=== PATIENT | female | born 1990 | race African-American/Black ===

== ENCOUNTER 2019-04-18 18:37 | Emergency (ER) | payer BC, OTHER ==
[2019-04-18 19:07] VITALS: BP 112/65; PULSE 78; TEMP 98.4; BMI 19.7
--- NOTE | 2019-04-18 21:15 | PDOC ---
Documentation entered by Leyda Hall SCRIBE, acting as scribe for Kathya Sepulveda MD. Kathya Sepulveda MD: This documentation has been prepared by the Rafael andrew Maria, SCRIBE, under my direction and personally reviewed by me in its entirety. I confirm that the documentation accurately reflects all work, treatment, procedures, and medical decision making performed by me. History of Present Illness - General Chief Complaint: Itching Stated Complaint: ITCHING Time Seen by Provider: 04/18/19 19:12 History Source: Patient Exam Limitations: No Limitations - History of Present Illness Initial Comments: 04/18/19 19:40 Patient is a 28 year old female with no significant past medical history who presents to the emergency department with itchiness since night. Patient states the itchiness comes and goes and describes it as a constant burning sensation. Patient also states getting welts after scratching. Patient states she recently took fluconazole and nitrofurantoin as prescribed by doctor. Patient states she took benadryl for the itchiness with no alleviation prompting her to the ER. Patient denies using any new detergent, soap or lotion. Patient denies eating any new food. Patient denies taking any vitamins or supplements. The patient denies lip/tongue edema, difficulty swallowing or breathing,chest pain, abdominal pain, shortness of breath, headache and dizziness. Denies fever, chills, nausea, vomiting, diarrhea and constipation. Denies any other symptoms. Allergies: NKA Past surgical history: None reported. Social history: Nonsmoker. Denies EtOH use and recreational drug use. Primary Care Physician: Past History - Past Medical History Allergies/Adverse Reactions: Allergies Allergy/AdvReac Type Severity Reaction Status Date / Time No Known Allergies Allergy Verified 04/18/19 18:41 Home Medications: Ambulatory Orders Diphenhydramine HCl [Benadryl -] 25 mg PO ONCE 04/18/19 COPD: No Disorders: Yes (RECENT UTI) - Psycho Social/Smoking Cessation Hx Smoking Status: No Smoking History: Never smoked Number of Cigarettes Smoked Daily: 0 Hx Alcohol Use: No Drug/Substance Use Hx: No Review of Systems - Review of Systems Able to Perform ROS?: Yes Comments:: 04/18/19 19:41 GENERAL/CONSTITUTIONAL: No fever or chills. No weakness. HEAD, EYES, EARS, NOSE AND THROAT: No change in vision. No ear pain or discharge. No sore throat. CARDIOVASCULAR: No chest pain or shortness of breath. RESPIRATORY: No cough, wheezing, or hemoptysis. GASTROINTESTINAL: No nausea, vomiting, diarrhea or constipation. GENITOURINARY: No dysuria, frequency, or change in urination. MUSCULOSKELETAL: No joint or muscle swelling or pain. No neck or back pain. SKIN:+ itching +welts NEUROLOGIC: No headache, vertigo, loss of consciousness, or change in strength/ sensation. ENDOCRINE: No increased thirst. No abnormal weight change. HEMATOLOGIC/LYMPHATIC: No anemia, easy bleeding, or history of blood clots. ALLERGIC/IMMUNOLOGIC: No hives or skin allergy. *Physical Exam - Vital Signs Last Vital Signs Temp Pulse Resp BP Pulse Ox 98.4 F 78 15 112/65 100 04/18/19 18:39 04/18/19 18:39 04/18/19 18:39 04/18/19 18:39 04/18/19 18:39 - Physical Exam 04/18/19 19:41 GENERAL: Awake, alert, and fully oriented, in no acute distress HEAD: No signs of trauma EYES: PERRLA, EOMI, sclera anicteric, conjunctiva clear ENT: Auricles normal inspection, hearing grossly normal, nares patent, oropharynx clear without exudates. Moist mucosa NECK: Normal ROM, supple, no lymphadenopathy, JVD, or masses LUNGS: Breath sounds equal, clear to auscultation bilaterally. No wheezes, and no crackles HEART: Regular rate and rhythm, normal S1 and S2, no murmurs, rubs or gallops ABDOMEN: Soft, nontender, normoactive bowel sounds. No guarding, no rebound. No masses EXTREMITIES: Normal range of motion, no edema. No clubbing or cyanosis. No cords, erythema, or tenderness NEUROLOGICAL: Cranial nerves II through XII grossly intact. Normal speech, normal gait SKIN: + small scattered maculopapular lesions on bilateral forearms. Warm, Dry , normal turgor. 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 The symptoms began a few days after finishing nitrofurantoin course and several days after finishing fluconazole dose. No previous history of allergy to either of those medications. She has not ingested any new food,medications/ supplements or vitamin. There has been no change in topical preparations or in detergents that she uses. There have been no symptoms consistent with airway edema. Exam as noted. Although the patient does not have significant rash currently (other than scattered maculopapular lesions on bilateral forearms), history most consistent with urticaria. Since she recently completed antibiotic course, the etiology likely is medication related allergic reaction. Since she has not consistently taking antihistamines for her pruritus and she has no history of any upper airway edema signs or symptoms, steroid course will be deferred at this time. The patient will use nonsedating anti-histamines during the day and Benadryl as needed at night for the next few days. If she has persistent urticaria despite this, she should return to the ER or see her doctor. She should return to the ER immediately if she has any upper airway swelling or develops wheezing/ shortness of breath She should follow-up with her doctor in any case within the next 2 to 3 days Discharge - Discharge Information Problems reviewed: Yes Clinical Impression/Diagnosis: Pruritus Condition: Stable Disposition: HOME - Follow up/Referral Referrals: Robb Gilmore MD [Primary Care Provider] - - Patient Discharge Instructions Patient Printed Discharge Instructions: DI for Hives Additional Instructions: Continue Benardryl as needed for itching at night nonsedating antihistamine such as Claritin/Zyrtec/Tiana during the day Can also consider using Pepcid or Tagamet along with antihistamine Return to ER immediately if you have any lip/tongue swelling or difficulty swallowing/breathing Follow-up with your doctor within the next 48 hours No work tomorrow - Post Discharge Activity Work/Back to School Note: Back to Work
== END 2019-04-18 19:51 | disposition home or self-care (01) ==
LOC: FER 18:37
DX: L29.9 Pruritus, unspecified (principal)
CPT/HCPCS: 99281-25